=== PATIENT | female | born 1990 | race African-American/Black ===

== ENCOUNTER → 2017-05-19 | Outpatient (CLI) | payer OTHER ==
[~2017-05-19] MED LIST: MULT-513 PO; VNTHFA/IN INH
--- NOTE | 2017-05-19 14:43 | DIAGNOSTIC IMAGING REPORT ---
RIGHT HIP UNILATERAL 2 VIEWS HISTORY:27 [id number] Hip pain without reported trauma. Right COMPARISON: None available. TECHNIQUE: AP and frog-leg views of the right hip FINDINGS: There is no acute fracture, dislocation or significant degenerative changes. There is however very minimal bony spurring along the lateral margin of the femoral head neck junction. The soft tissues are within normal limits without radiopaque foreign body. Imaged right hemipelvis appears intact. IMPRESSION: 1. No acute bony abnormality. 2. Minimal bony spurring along the lateral margin of the femoral head neck junction can be seen in cases of femoral acetabular impingement. The above report was generated using voice recognition software. It may contain grammatical, syntax or spelling errors. Electronically signed by: Dave Magaña M.D. 05/19/2017 2:42 PM Dictated Date/Time: 05/19/2017 2:39 PM
== END | disposition home or self-care (01) ==
LOC: C.RAD 14:17
PROVIDERS: ATTEND Physician Assistant
DX: M25.559 Pain in unspecified hip (principal)

== ENCOUNTER 2018-06-26 18:37 | Emergency (ER) | payer BC, OTHER ==
[~2018-06-26] VITALS: Ht 165.1 cm; Wt 57.4 kg
[2018-06-26 18:42] VITALS: TEMP 37.2; Ht 165.1 cm; Wt 57.4 kg
[2018-06-26] MEDS ORDERED: KETOROLAC TROMETHAMINE 30 MG/ML VIAL IV STA (19:01)
[2018-06-26] MEDS ORDERED: SODIUM CHLORIDE 0.9% 1000ML 1,000 ML IV ONE ×2 (19:15→20:00)
[2018-06-26] MEDS ORDERED: ONDANSETRON INJ 2 MG/ML 2 ML VIAL IV PRN (19:15)
--- NOTE | 2018-06-26 19:37 | EMERGENCY ROOM VISIT NOTE ---
History First contact with patient: 18:46 Chief Complaint: BACK PAIN Stated Complaint: PAIN IN LOWER BACK AN ABDOMIN History of Present Illness The patient is a 28 year old female who presents to the Emergency Room with complaints of left flank pain radiating into the left side of her abdomen that started at approximately 2 AM this morning. She describes it as a sharp, stabbing sensation that occasionally intensifies. She has also had urinary frequency. She denies any dysuria or hematuria. No fever or chills. She did feel nauseated today. The patient was treated for UTI approximately 3 weeks ago. Her symptoms seem to have improved. She denies any problems with bowel movements. No vaginal discharge. She is sexually active with one partner. Review of Systems 10 system review performed and negative unless noted in HPI or below Past Medical/Surgical History Medical Problems: (1) Alcohol Abuse-Unspec Family History Cancer Hypertension Social History Smoking Status: Never Smoker Alcohol Use: occasionally Marital Status: single Housing Status: lives with family Occupation Status: [employer] student Current/Historical Medications Scheduled Albuterol Hfa (Ventolin Hfa), 2-4 PUFFS INH Q6H Multivitamins/Minerals (Mvi With Minerals), 1 TAB PO DAILY Physical Exam Vital Signs Date Time Temp Pulse Resp B/P (MAP) Pulse Ox O2 Delivery O2 Flow Rate FiO2 06/26/18 21:07 82 20 105/58 98 Room Air 06/26/18 18:42 37.2 97 20 118/68 100 Room Air Physical Exam VITALS: Vitals are noted on the nurse's note and reviewed by myself. Vital signs stable. GENERAL: 28-year-old female, in no acute distress, nondiaphoretic, well- developed well-nourished. SKIN: The skin was without rashes, erythema, edema, or bruising. HEAD: Normocephalic atraumatic. EYES: Conjunctivae without injection, sclerae without icterus. Extraocular movements intact. MOUTH: Mucous membranes slightly dry NECK: Supple without nuchal rigidity. No lymphadenopathy. Cervical spine is nontender. No JVD. HEART: Regular rate and rhythm without murmurs gallops or rubs. LUNGS: Clear to auscultation bilaterally without wheezes, rales or rhonchi. No accessory muscle use. ABDOMEN: Positive bowel sounds x 4.Soft, mild tenderness in the epigastric and left upper quadrant. Left-sided CVA tenderness. No rebound tenderness. MUSCULOSKELETAL: No muscle atrophy, erythema, or edema noted. Strength 5/5 throughout. NEURO: Patient was alert and oriented to person place and time. Normal sensation to touch. No focal neurological deficits. Medical Decision & Procedures ER Provider Diagnostic Interpretation: Retroperitoneal ultrasoundf IMPRESSION: 1. Normal sonographic appearance of the kidneys. No hydronephrosis 2. Bladder wall thickening which is likely due to underdistention however findings could be correlated with urinalysis to exclude cystitis. Electronically signed by: Russell Brown M.D. Laboratory Results 06/26/18 19:20 Red Blood Count 4.09, Mean Corpuscular Volume 92.2, Mean Corpuscular Hemoglobin 31.1, Mean Corpuscular Hemoglobin Concent 33.7, Mean Platelet Volume 10.5, Neutrophils (%) (Auto) 80.8, Lymphocytes (%) (Auto) 9.4, Monocytes (%) (Auto) 9.4, Eosinophils (%) (Auto) 0.0, Basophils (%) (Auto) 0.1, Neutrophils # (Auto) 10.69, Lymphocytes # (Auto) 1.25, Monocytes # (Auto) 1.25, Eosinophils # (Auto) 0.00, Basophils # (Auto) 0.01 06/26/18 19:20 Test 06/26/18 19:00 06/26/18 19:20 Urine Color YELLOW Urine Appearance CLOUDY (CLEAR) Urine pH 5.5 (4.5-7.5) Urine Specific [place] 1.020 (1.000-1.030) Urine Protein TRACE (NEG) Urine Glucose (UA) NEG (NEG) Urine Ketones 2+ (NEG) Urine Occult Blood 2+ (NEG) Urine Nitrite NEG (NEG) Urine Bilirubin NEG (NEG) Urine Urobilinogen NEG (NEG) Urine Leukocyte Esterase MODERATE (NEG) Urine WBC (Auto) >30 /hpf (0-5) Urine RBC (Auto) 5-10 /hpf (0-4) Urine Hyaline Casts (Auto) 1-5 /lpf (0-5) Urine Epithelial Cells (Auto) 5-10 /lpf (0-5) Urine Bacteria (Auto) 2+ (NEG) Urine Pathogenic Casts /lpf (0) Urine Test NEG (NEG) White Blood Count 13.24 K/uL (4.8-10.8) Red Blood Count 4.09 M/uL (4.2-5.4) Hemoglobin 12.7 g/dL (12.0-16.0) Hematocrit 37.7 % (37-47) Mean Corpuscular Volume 92.2 fL (80-100) Mean Corpuscular Hemoglobin 31.1 pg (25-34) Mean Corpuscular Hemoglobin Concent 33.7 g/dl (32-36) Platelet Count 223 K/uL (130-400) Mean Platelet Volume 10.5 fL (7.4-10.4) Neutrophils (%) (Auto) 80.8 % Lymphocytes (%) (Auto) 9.4 % Monocytes (%) (Auto) 9.4 % Eosinophils (%) (Auto) 0.0 % Basophils (%) (Auto) 0.1 % Neutrophils # (Auto) 10.69 K/uL (1.4-6.5) Lymphocytes # (Auto) 1.25 K/uL (1.2-3.4) Monocytes # (Auto) 1.25 K/uL (0.11-0.59) Eosinophils # (Auto) 0.00 K/uL (0-0.5) Basophils # (Auto) 0.01 K/uL (0-0.2) RDW Standard Deviation 44.4 fL (36.4-46.3) RDW Coefficient of Variation 13.2 % (11.5-14.5) Immature Granulocyte % (Auto) 0.3 % Immature Granulocyte # (Auto) 0.04 K/uL (0.00-0.02) Anion Gap 9.0 mmol/L (3-11) Est Creatinine Clear Calc Drug Dose 77.7 ml/min Estimated GFR () 92.1 Estimated GFR (Non- 79.5 BUN/Creatinine Ratio 10.1 (10-20) Calcium Level 8.8 mg/dl (8.5-10.1) Total Bilirubin 0.8 mg/dl (0.2-1) Aspartate Amino Transf (AST/SGOT) 15 U/L (15-37) Alanine Aminotransferase (ALT/SGPT) 17 U/L (12-78) Alkaline Phosphatase 50 U/L (45-117) Total Protein 7.7 gm/dl (6.4-8.2) Albumin 3.4 gm/dl (3.4-5.0) Globulin 4.3 gm/dl (2.5-4.0) Albumin/Globulin Ratio 0.8 (0.9-2) Lipase 84 U/L (73-393) Medications Administered Medications (Trade) Dose Ordered Sig/Danelle Route Start Time Stop Time Status Last Admin Dose Admin Ketorolac Tromethamine (Toradol Inj) 30 mg NOW STAT IV 06/26/18 19:01 06/26/18 19:04 DC 06/26/18 19:30 30 MG Sodium Chloride 1,000 ml @ 999 mls/hr Q1H1M ONCE IV 06/26/18 19:15 06/26/18 20:15 DC 06/26/18 19:30 999 MLS/HR Ondansetron HCl (Zofran Inj) 4 mg Q2H PRN IV 06/26/18 19:15 07/26/18 19:14 06/26/18 19:29 4 MG Sodium Chloride 1,000 ml @ 999 mls/hr Q1H1M ONCE IV 06/26/18 20:00 06/26/18 21:00 DC 06/26/18 21:00 999 MLS/HR Ciprofloxacin/ Dextrose (Cipro / D5W) 400 mg NOW STAT IV 06/26/18 20:34 06/26/18 20:35 DC 06/26/18 20:59 400 MG ED Course Patient was seen and examined Vital signs including blood pressure were reviewed medications list was verified with patient Labs were obtained, and a saline lock was established The patient was medicated with Toradol 30 mg IV. She was hydrated with 1 L of normal saline. Imaging was performed and reviewed The patient was reassessed and resting more comfortably. We discussed her workup. She voiced understanding, was comfortable being discharged home. The case is also discussed with my supervising physician who is in agreement with my plan The patient was given 1 dose of ciprofloxacin 400 mg IV. She was also hydrated with 1 additional liter of normal saline. I reviewed discharge instructions the patient. They voiced understanding and had no further questions. Medical Decision Differential diagnosis: UTI, pyelonephritis, ureteral stone, musculoskeletal back pain, pancreatitis, gastritis, diverticulitis, among others were considered This patient is a 28-year-old female who presents to emergency department complaining of left flank pain radiating to the left side of her abdomen in addition to urinary symptoms. On exam, she had left-sided CVA tenderness. She was afebrile. Vital signs were stable. She was nontoxic in appearance. Her workup reveals a UTI and mild leukocytosis. No acute abnormalities were noted on the retroperitoneal ultrasound. I believe she likely has a mild pyelonephritis given her recent treatment for UTI. She was recently treated with Keflex; therefore, I will switch her antibiotics to ciprofloxacin. She will complete a full 2 week course. For reasons as noted above, I believe she is stable to be discharged home on oral antibiotics with close follow-up. The patient was comfortable with this plan. She was cautioned on symptoms for which to return to the emergency department. This chart was completed in part utilizing [employer] Speech Voice Recognition software. Attempts were made to minimize the grammatical errors, random word insertions, pronoun errors and incomplete sentences. Any formal questions or concerns about the content, text or information contained within the body of this dictation should be directly addressed to the provider for clarification. Impression Primary Impression: Pyelonephritis Departure Information Dispostion Home / Self-Care Condition FAIR Prescriptions Ondasetron Odt (ZOFRAN ODT) 4 Mg Tab 4 MG SL Q6H for Nausea, #20 TAB Prov: Michelle Estes PA-C 06/26/18 Ciprofloxacin Hcl (CIPRO) 500 Mg Tab 500 MG PO BID for 14 Days, #28 TAB Prov: Michelle Estes PA-C 06/26/18 Referrals No Doctor, Assigned (PCP) Patient Instructions My [facility] Additional Instructions You have been evaluated in the emergency department for flank pain. This is likely due to a mild kidney infection/UTI. Please try to stay well-hydrated. Increase fluids over the next several days. Please take Zofran 1 tab every 6 hours as needed for nausea Take ibuprofen 600 mg every 6 hours as needed for discomfort. Please do not exceed 2400 mg in a 24-hour period. Please take the ENTIRE course of ciprofloxacin even if you begin to feel better Please follow-up with your primary care physician this week. Call tomorrow morning for a follow-up appointment. Do not hesitate to return to the emergency department with any new, worsening or concerning symptoms; especially, fever, worsening pain or vomiting It was a pleasure participating in your care today
[2018-06-26 19:45] LABS: BASO % 0.1 %; BASO ABS # 0.01 K/uL (0-0.2); HEMATOCRIT 37.7 % (37-47); HEMOGLOBIN 12.7 g/dL (12.0-16.0); IG# 0.04 K/uL (0.00-0.02); LYMPH % 9.4 %; LYMPH ABS # 1.25 K/uL (1.2-3.4); MEAN CELL VOLUME 92.2 fL (80-100); MEAN CORPUSCULAR HEMOGLOBIN 31.1 pg (25-34); MEAN CORPUSCULAR HGB CONC 33.7 g/dl (32-36); MEAN PLATELET VOLUME 10.5 fL (7.4-10.4); MONO % 9.4 %; MONO ABS # 1.25 K/uL (0.11-0.59); NEUT % 80.8 %; NEUT ABS # 10.69 K/uL (1.4-6.5); PLATELET COUNT 223 K/uL (130-400); RED CELL DISTRIBUTION WIDTH CV 13.2 % (11.5-14.5); RED CELL DISTRIBUTION WIDTH SD 44.4 fL (36.4-46.3); WHITE BLOOD COUNT 13.24 K/uL (4.8-10.8)
[2018-06-26 20:03] LABS: ALBUMIN 3.4 gm/dl (3.4-5.0); CALCIUM 8.8 mg/dl (8.5-10.1); CREATININE 0.97 mg/dl (0.60-1.20); POTASSIUM 3.7 mmol/L (3.5-5.1); TOTAL PROTEIN 7.7 gm/dl (6.4-8.2)
--- NOTE | 2018-06-26 20:14 | DIAGNOSTIC IMAGING REPORT ---
RENAL ULTRASOUND CLINICAL HISTORY: Recent urinary tract infection. Left flank pain. COMPARISON STUDY: None. TECHNIQUE: Sonography of the kidneys and the urinary bladder was performed. FINDINGS: The right kidney measures 12.1 cm in maximal dimension and the left measures 11.6 cm. There is no hydronephrosis. No renal calculi or masses are identified. Renal echogenicity, size and cortical thickness are normal. Neither ureteral jet was identified. Bladder wall thickening is accentuated by underdistention. IMPRESSION: 1. Normal sonographic appearance of the kidneys. No hydronephrosis 2. Bladder wall thickening which is likely due to underdistention however findings could be correlated with urinalysis to exclude cystitis. Electronically signed by: Russell Brown M.D. 06/26/2018 8:13 PM Dictated Date/Time: 06/26/2018 8:11 PM
[2018-06-26] MEDS ORDERED: CIPROFLOXACIN 400MG / 200ML D5W IV STA (20:34)
[2018-06-26] MEDS ORDERED: ONDA4TAB10 SL (22:41)
[2018-06-26] MEDS ORDERED: CIPR-255 PO (22:41)
[2018-06-26 22:50] VITALS: BP 109/82; PULSE 82; O2SAT 98
--- NOTE | 2018-06-28 12:49 | Pharmacy Progress Note ---
ED Pharmacist Culture FollowUp Date of Service: Jun 28, 2018. Patient was sent home with a prescription for Ciprofloxacin 500mg PO BID x 14 days, which should cover the klebsiella pneumoniae growing from the patient's URINE culture.
[2018-07-01] MEDS ORDERED: MULT-513 PO (08:23)
[2018-07-01] MEDS ORDERED: VNTHFA/IN INH (12:16)
[2018-07-01] MEDS ORDERED: IBUP-1050 PO (15:36)
[2018-07-01] MEDS ORDERED: BCPILLS PO (15:36)
== END 2018-06-26 22:55 | disposition home or self-care (01) ==
LOC: C.EDB 18:39
DX: N12 Tubulo-interstitial nephritis, not specified as acute or chronic (principal); Z87.440 Personal history of urinary (tract) infections; Z80.9 Family history of malignant neoplasm, unspecified; Z82.49 Family history of ischemic heart disease and other diseases of the circulatory system; Z79.899 Other long term (current) drug therapy